=== PATIENT | male | born 1965 | race Two or more races ===

== ENCOUNTER 2017-12-26 15:34 | Emergency (ER) | payer OTHER ==
[2017-12-26 15:51] VITALS: BP 134/87
--- NOTE | 2017-12-26 16:05 | EDPHY ---
H & P Time Seen by Provider: 12/26/17 15:59 HPI/ROS: CHIEF COMPLAINT: Eye pain, ear pain HISTORY OF PRESENT ILLNESS: Patient is a 52-year-old male with no reported medical problems who presents to the emergency department with 1 month of eye pain. The patient states he has had intermittent stye like lesions on his right upper eyelid. He initially developed a lateral lesion. This subsequently resolved. There is now a more proximal lesion on his upper lid. No visual change. No eye discharge. Over the past couple days the patient has had mild ear pain. No discharge from his ear. He is not reporting any facial rash. No fevers or chills. No nausea or vomiting. No difficulty with speech. No weakness or numbness. REVIEW OF SYSTEMS: 10 systems were reveiwed and are negative with the exception of the elements mentioned in the history of present illness. Past Medical/Surgical History: Denies Past surgical history: Denies Smoking Status: Current every day smoker Physical Exam: Vitals noted GENERAL: No acute distress, alert. Face: Patient has no facial rash. No facial lesions. TMs negative bilaterally. No visible lesions in the ear canal. The patient has mild exophthalmos bilaterally. This appears symmetric. Visual acuity: Noted. Eyelids: Patient has a stye like lesion on his medial aspect of his right upper lid. No eyelid erythema or warmth. Conjunctiva and sclera: Normal inspection. No foreign material. No subconjunctival hemorrhage. No exudate. Not injected. Corneas: Normal inspection. Examined with fluorescein dye: No uptake, abrasion, or ulcer. No dendrites. EOMs: Intact. Pupils: PERRL, normal accommodation. Anterior chambers: Normal inspection. No hyphema. No cells or flare. Posterior segments: Limited funduscopic exam but no obvious abnormalities. NECK: Normal, supple. No lymphadenopathy RESPIRATORY: Clear to auscultation bilaterally, no rales, rhonchi or wheezing. CVS: Regular rate and rhythm, no rubs, murmurs, or gallops. ABDOMEN: Soft, nontender. SKIN: Normal color, no rash, warm, dry. No pallor. EXTREMITIES: Normal appearing. NEURO/PSYCH: Alert and oriented, normal mood and affect, normal motor sensory exam. No obvious cranial nerve deficit. Constitutional: Initial Vital Signs Temperature (C) 37 C 12/26/17 15:49 Heart Rate 93 12/26/17 15:49 Respiratory Rate 18 12/26/17 15:49 Blood Pressure 134/87 H 12/26/17 15:49 O2 Sat (%) 91 L 12/26/17 15:49 O2 Delivery Mode Room Air Allergies/Adverse Reactions: No Known Allergies Allergy (Unverified 12/26/17 15:52) Home Medications: Medication Instructions Recorded NK [No Known Home Meds] 12/26/17 Medical Decision Making ED Course/Re-evaluation: In the emergency department I discussed possible etiologies with the patient. I answered all his questions. Patient consented to slit-lamp exam and Tab-Pen evaluation for pressures. Slit-lamp exam: Please refer to physical exam findings. Tonopen pressure reading x2: 13, 13 (OD) I discussed the findings with the patient and friend. I answered all his questions. Patient will use bacitracin cream on his eyelid. He is given follow -up with Dr. Luque. He is aware that needs close follow-up this week to recheck his eye exam. Differential Diagnosis: My differential includes but is not limited to sty, exophthalmos, mass, malignancy, glaucoma, zoster, cellulitis, abscess - Data Points Medications Given: Discontinued Medications Proparacaine HCl (Alcaine 0.5%) 1 drops RTEYE ONCE ONE Stop: 12/26/17 16:18 Last Admin: 12/26/17 16:20 Dose: Not Given Departure - Departure Disposition: Home, Routine, Self-Care Clinical Impression: Breezy external Qualifiers: Laterality: right Eyelid: upper Qualified Code(s): H00.011 - Hordeolum externum right upper eyelid Condition: Fair Instructions: Breezy (ED) Additional Instructions: In the emergency department your eye pressure was normal. You need to treat your eyelid lesion with bacitracin. You can buy this medication over the counter. Apply Bacitracin 3 times daily to your right eyelid. Call Dr. Luque to make an appointment this week for recheck. He is an rn hemodialysis charge. Referrals: Tyrone Rudd MD [Medical Doctor] - 2-3 days without fail
[2017-12-26] MEDS ORDERED: FLUORESCEIN SODIUM 1 MG STRIP OP ONE ×3 (16:15→16:20)
[2017-12-26] MEDS ORDERED: PROPARACAINE 0.5% 15 ML OPHT DROP RTEYE ONE (16:17)
== END 2017-12-26 16:42 | disposition home or self-care (01) ==
LOC: CED 15:34
DX: H00.011 Hordeolum externum right upper eyelid (principal); H92.09 Otalgia, unspecified ear; F17.200 Nicotine dependence, unspecified, uncomplicated